=== PATIENT | male | born 1990 | race Caucasian/White ===

== ENCOUNTER 2018-11-06 20:33 | Emergency (ER) | payer OTHER ==
[2018-11-06 22:09] LABS: ABSOLUTE MONOCYTES (AUTO) 0.6 10^3/uL (0.1-1.4); ABSOLUTE NEUT (AUTO) 5.2 10^3/uL (1.7-8.2); BASOPHILS % (AUTO) 0.3 % (0-2); EOSINOPHILS % (AUTO) 0.6 % (0-6); HEMATOCRIT 45.1 % (37.9-51.0); HEMOGLOBIN 15.7 g/dL (13.5-17.0); LYMPHOCYTES % (AUTO) 25.4 % (13-45); MEAN CORPUSCULAR HEMOGLOBIN 28.6 pg (27.0-33.4); MEAN CORPUSCULAR HGB CONC 34.8 g/dL (32.0-36.0); MEAN CORPUSCULAR VOLUME 82 fl (80-97); MONOCYTES % (AUTO) 7.4 % (3-13); PLATELET COUNT 230 10^3/uL (150-450); RED CELL DISTRIBUTION WIDTH 12.5 % (11.5-14.0); SEGMENTED NEUTROPHILS % (AUTO) 66.3 % (42-78); TOTAL CELLS COUNTED % (AUTO) 100 %; WHITE BLOOD COUNT 7.9 10^3/uL (4.0-10.5)
[2018-11-06 22:16] LABS: ALANINE AMINOTRANSFERASE 26 U/L (21-72); ALBUMIN 4.7 g/dL (3.5-5.0); ALKALINE PHOSPHATASE 74 U/L (38-126); ANION GAP 9 (5-19); ASPARTATE AMINO TRANSFERASE 23 U/L (17-59); BILIRUBIN,DIRECT 0.3 mg/dL (0.0-0.4); BILIRUBIN,TOTAL 0.5 mg/dL (0.2-1.3); BLOOD UREA NITROGEN 14 mg/dL (7-20); CALCIUM 10.4 mg/dL (8.4-10.2); CARBON DIOXIDE 30 mmol/L (22-30); CHLORIDE 104 mmol/L (98-107); GLUCOSE 95 mg/dL (75-110); POTASSIUM 4.5 mmol/L (3.6-5.0); TOTAL PROTEIN 8.1 g/dL (6.3-8.2)
[2018-11-06 22:18] LABS: ACETAMINOPHEN < 10 ug/mL (10-30); ALCOHOL < 10 mg/dL (NONE DETECTED); SALICYLATE < 1.0 mg/dL (2.0-20.0)
--- NOTE | 2018-11-06 22:32 | ER Document Report ---
ED General - General Chief Complaint: Psych Problem Stated Complaint: PSYCH/IVC Time Seen by Provider: 11/06/18 21:08 Mode of Arrival: Medic Information source: Patient, Law Enforcement, Emergency Med Personnel Notes: 28-year-old male presents with IVC paperwork in police custody. Patient states that he made several phone calls stating that he needed someone sent out to the house so that his girlfriend did not find him when she came home. [facility]'s department was called by Dr. Helms to do a welfare check on the patient where he was found in the backyard with a plastic bag over his head and bungee cord strapped around his neck. When he was taken into his bedroom he forced himself into a closet that contained a gun which caused the police to have to wrestle the patient to the ground. Patient will not tell me the details of what caused him to do this today he only states "it has been a long time coming". Patient also admits to drinking a lot of beer today. He denies any other drug use or medication use. TRAVEL OUTSIDE OF THE [place] IN LAST 30 DAYS: No - HPI Onset: Just prior to arrival Onset/Duration: Sudden Quality of pain: No pain Severity: None Associated symptoms: None Exacerbated by: Denies Relieved by: Denies Similar symptoms previously: Yes Recently seen / treated by doctor: Yes Past Medical History - General Information source: Patient, Law Enforcement, Emergency Med Personnel - Social History Smoking Status: Unknown if Ever Smoked Frequency of alcohol use: Heavy Drug Abuse: None Lives with: Spouse/Significant other Family History: Reviewed & Not Pertinent Patient has suicidal ideation: Yes Patient has homicidal ideation: No Renal/ Medical History: Denies: Hx Peritoneal Dialysis Psychiatric Medical History: Reports: Hx Depression Review of Systems - Review of Systems Notes: REVIEW OF SYSTEMS: CONSTITUTIONAL : Denies fever, chills, or sweats. Denies recent illness. Denies weight loss, recent hospitalizations. EENT: Denies visual changes, eye pain. Denies sore throat, oral lesions, difficulty swallowing. CARDIOVASCULAR: Denies chest pain. Denies palpitations. Denies lower extremity edema. RESPIRATORY: Denies cough. Denies shortness of breath, wheezing. GASTROINTESTINAL: Denies abdominal pain or distention. Denies nausea, vomiting, or diarrhea. Denies blood in vomitus, stools, or per rectum. Denies black, tarry stools. Denies constipation. GENITOURINARY: Denies difficulty urinating, painful urination, frequency, blood in urine, testicular pain or penile discharge. MUSCULOSKELETAL: Denies back or neck pain or stiffness. Denies joint pain or swelling. SKIN: + Abrasion to right side of face HEMATOLOGIC : Denies easy bruising or bleeding. LYMPHATIC: Denies swollen glands. NEUROLOGICAL: Denies confusion or altered mental status. Denies loss of consciousness. Denies dizziness or lightheadedness. Denies headache. Denies weakness or paralysis. Denies problems difficulty with ambulation, slurred speech. Denies sensory loss, numbness, or tingling. Denies seizures. PSYCHIATRIC: + Suicidal ideation Physical Exam - Vital signs Vitals: Temp Pulse Resp BP Pulse Ox 97.8 F 96 18 128/73 H 100 11/06/18 20:38 11/06/18 20:38 11/06/18 20:38 11/06/18 20:38 11/06/18 20:38 - Notes Notes: PHYSICAL EXAMINATION: GENERAL: Well-appearing, well-nourished and in no acute distress. HEAD: Atraumatic, normocephalic. EYES: Pupils equal round and reactive to light, extraocular movements intact, sclera anicteric, conjunctiva are normal. ENT: Nares patent, oropharynx clear without exudates. Moist mucous membranes. NECK: Normal range of motion, supple without lymphadenopathy LUNGS: Breath sounds clear to auscultation bilaterally and equal. No wheezes rales or rhonchi. HEART: Regular rate and rhythm without murmurs ABDOMEN: Soft, nontender, nondistended abdomen. No guarding, no rebound. No masses appreciated. Musculoskeletal: Normal range of motion, no pitting or edema. No cyanosis. NEUROLOGICAL: Cranial nerves grossly intact. Normal speech, normal gait. Normal sensory, motor exams PSYCH: Admits to suicidal ideation. SKIN: Superficial abrasion to the right side of the face. Course - Re-evaluation Re-evalutation: Laboratory 11/06/18 11/06/18 11/06/18 20:42 20:42 22:25 WBC 7.9 RBC 5.50 Hgb 15.7 Hct 45.1 MCV 82 MCH 28.6 MCHC 34.8 RDW 12.5 Plt Count 230 Seg Neutrophils % 66.3 Lymphocytes % 25.4 Monocytes % 7.4 Eosinophils % 0.6 Basophils % 0.3 Absolute Neutrophils 5.2 Absolute Lymphocytes 2.0 Absolute Monocytes 0.6 Absolute Eosinophils 0.0 Absolute Basophils 0.0 Sodium 143.0 Potassium 4.5 Chloride 104 Carbon Dioxide 30 Anion Gap 9 BUN 14 Creatinine 1.01 Est GFR ( Amer) > 60 Est GFR (Non-Af Amer) > 60 Glucose 95 Calcium 10.4 H Total Bilirubin 0.5 Direct Bilirubin 0.3 Neonat Total Bilirubin Not Reportable Neonat Direct Bilirubin Not Reportable Neonat Indirect Bili Not Reportable AST 23 ALT 26 Alkaline Phosphatase 74 Total Protein 8.1 Albumin 4.7 Urine Color YELLOW Urine Appearance TURBID Urine pH 5.0 Ur Specific [place]inn 1.017 Urine Protein NEGATIVE Urine Glucose (UA) NEGATIVE Urine Ketones NEGATIVE Urine Blood NEGATIVE Urine Nitrite NEGATIVE Urine Bilirubin NEGATIVE Urine Urobilinogen NEGATIVE Ur Leukocyte Esterase SMALL H Urine WBC (Auto) 4 Urine Mucus (Auto) OCC Urine Ascorbic Acid NEGATIVE Salicylates < 1.0 L Urine Opiates Screen Urine Methadone Screen Acetaminophen < 10 L Ur Barbiturates Screen Ur Phencyclidine Scrn Ur Amphetamines Screen U Benzodiazepines Scrn Urine Cocaine Screen U Marijuana (THC) Screen Serum Alcohol < 10 11/06/18 22:25 WBC RBC Hgb Hct MCV MCH MCHC RDW Plt Count Seg Neutrophils % Lymphocytes % Monocytes % Eosinophils % Basophils % Absolute Neutrophils Absolute Lymphocytes Absolute Monocytes Absolute Eosinophils Absolute Basophils Sodium Potassium Chloride Carbon Dioxide Anion Gap BUN Creatinine Est GFR ( Amer) Est GFR (Non-Af Amer) Glucose Calcium Total Bilirubin Direct Bilirubin Neonat Total Bilirubin Neonat Direct Bilirubin Neonat Indirect Bili AST ALT Alkaline Phosphatase Total Protein Albumin Urine Color Urine Appearance Urine pH Ur Specific Linn Urine Protein Urine Glucose (UA) Urine Ketones Urine Blood Urine Nitrite Urine Bilirubin Urine Urobilinogen Ur Leukocyte Esterase Urine WBC (Auto) Urine Mucus (Auto) Urine Ascorbic Acid Salicylates Urine Opiates Screen NEGATIVE Urine Methadone Screen NEGATIVE Acetaminophen Ur Barbiturates Screen NEGATIVE Ur Phencyclidine Scrn NEGATIVE Ur Amphetamines Screen NEGATIVE U Benzodiazepines Scrn NEGATIVE Urine Cocaine Screen NEGATIVE U Marijuana (THC) Screen NEGATIVE Serum Alcohol Temp Pulse Resp BP Pulse Ox 97.8 F 96 18 128/73 H 100 11/06/18 20:38 11/06/18 20:38 11/06/18 20:38 11/06/18 20:38 11/06/18 20:38 28-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 Upon arrival vitals were reviewed and within normal limits. Patient does not appear toxic or dehydrated. He is in no acute distress. He does admit to suicidal ideation. IVC paperwork was already in place. 11/06/18 23:[address] Josemanuel Guerrero psychiatrist at [facility] who states that the patient cannot be transferred until the morning. He suggests that at 7 AM we go through the transfer center and initiate the transfer again. 11/07/18 00:53 Patient okay for evaluation by behavioral health team. Will require transfer to [facility] in the morning. - Vital Signs Vital signs: Temp Pulse Resp BP Pulse Ox 97.8 F 96 18 128/73 H 100 11/06/18 20:38 11/06/18 20:38 11/06/18 20:38 11/06/18 20:38 11/06/18 20:38 - Laboratory Result Diagrams: 11/06/18 20:42 11/06/18 20:42 Laboratory results interpreted by me: 11/06/18 11/06/18 20:42 22:25 Calcium 10.4 H Ur Leukocyte Esterase SMALL H Salicylates < 1.0 L Acetaminophen < 10 L - EKG Interpretation by [place] EKG shows normal: Sinus rhythm Rate: Normal Rhythm: NSR Discharge - Discharge Clinical Impression: Suicide attempt Condition: Good Disposition: [facility]
[2018-11-06 23:49] LABS: APPEARANCE,URINE TURBID; BILIRUBIN,URINE NEGATIVE (NEGATIVE); COLOR,URINE YELLOW; GLUCOSE, URINE NEGATIVE (NEGATIVE); KETONES,URINE NEGATIVE (NEGATIVE); LEUKOCYTE ESTERASE,URINE SMALL (NEGATIVE); NITRITE,URINE NEGATIVE (NEGATIVE); PROTEIN,URINE NEGATIVE (NEGATIVE); URINE SPECIFIC GRAVITY 1.017; UROBILINOGEN,URINE NEGATIVE mg/dL (<2.0)
[2018-11-07] LABS: URINE AMPHETAMINES SCREEN NEGATIVE; URINE BARBITURATES SCREEN NEGATIVE; URINE BENZODIAZEPINES SCREEN NEGATIVE; URINE COCAINE SCREEN NEGATIVE; URINE MARIJUANA (THC) SCREEN NEGATIVE; URINE METHADONE SCREEN NEGATIVE; URINE PHENCYCLIDINE SCREEN NEGATIVE
--- NOTE | 2018-11-07 08:07 | PSYCHOLOGICAL NOTE ---
Psych Note - Psych Note Date seen by psych provider: 11/07/18 Time seen by psych provider: 07:30 Psych Note: Reason for Consult: IVC [facility]'s department was called by Dr. Helms to do a welfare check on the patient where he was found in the backyard with a plastic bag over his head and bungee cord strapped around his neck. When he was taken into his bedroom he forced himself into a closet that contained a gun which caused the police to have to wrestle the patient to the ground. Patient reports that he was brought to [facility] ED via transit police officer. He reports that he had suicidal ideation for 2 years and denies any specific trigger. When asked about last night's events on what pushed him to try to harm himself he states "I just wanted to." Patient denies a history of previous attempts and confirms he is taking medications as directed. When asked if the patient needed to contact his command he stated "no I do not need to call." Patient then stated "what time to they find my body." Patient is reminded that he was alert and orientated when police arrived to the home and that he got into a scuffle with law enforcement when he attempted to go for a weapon. Patient denies having any memory of this. He reports that he was drinking. Clinician notes patient did not have any alcohol and toxicology screening upon arrival. Patient correctly identifies that it is currently October 2018. 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. Patient is alert and orientated to person, place, time and circumstance. Mood and affect are very flat. Patient presents after attempted suicide. Patient minimally engages with clinician and is very guarded. Clinician notes there are some bruising on patient's face reportedly from altercation with police when he attempted to obtain his weapon. Delusions are absent behaviors congruent with an intact reality based presentation i.e. organized and linear thought processes. Eye contact is poor. Conversational speech is very monotone. Intellectual abilities appear to be within the average range. Attention and concentration is poor. Insight, judgment, impulse control is poor. No medication recommendations at this time 311 (F32.9) unspecified depressive disorder At this time patient's diagnosis is unclear as patient is very guarded Impression\\plan: Patient is recommended for continue IVC. Patient confirms attempted suicide however will not engage fully with evaluation to determine trigger. Patient reports that he had been drinking; however, upon arrival toxicology screening indicates no alcohol in his system. Patient does deny previous attempts. 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 Dr. Lisa was consulted to care management of this patient; attending physicians in agreement with recommendations and disposition.
--- NOTE | 2018-11-07 08:27 | EKG REPORT ---
SEVERITY:- BORDERLINE ECG - SINUS RHYTHM BORDERLINE T WAVE ABNORMALITIES : Confirmed by: Junie Isidro MD 07-Nov-2018 08:27:00
[2018-11-07 11:51] VITALS: BP 107/63
== END 2018-11-07 11:51 ==
LOC: EDBD → ER 20:33
DX: Z04.6 Encounter for general psychiatric examination, requested by authority (principal); T14.91XA Suicide attempt, initial encounter; X83.8XXA Intentional self-harm by other specified means, initial encounter; Y92.007 Garden or yard of unspecified non-institutional (private) residence as the place of occurrence of the external cause; S00.81XA Abrasion of other part of head, initial encounter; X58.XXXA Exposure to other specified factors, initial encounter
CPT/HCPCS: 36415; 80053; 80307; 81001; 85025; 93005; 93010; 99285